=== PATIENT | female | born 1995 | race Caucasian/White ===

== ENCOUNTER 2021-08-01 19:32 | Emergency (ER) | payer MEDICAID ==
[~2021-08-01] VITALS: Ht 152.4 cm; Wt 67.1 kg
[2021-08-01 20:18] VITALS: BP 160/100
[2021-08-01] MEDS ORDERED: SODIUM CHLORIDE 0.9% 1,000 ML IV ONE (22:15)
[2021-08-01] MEDS ORDERED: CLINDAMYCIN 900MG IV 50 ML IV ONE (22:15)
[2021-08-01] MEDS ORDERED: FLUC150T38 PO (22:45)
[2021-08-01] MEDS ORDERED: CLIN300C8 PO (22:45)
== END 2021-08-01 23:24 | disposition home or self-care (01) ==
LOC: ER 19:32
DX: L02.11 Cutaneous abscess of neck (principal); Z79.2 Long term (current) use of antibiotics; Z79.899 Other long term (current) drug therapy
CPT/HCPCS: 70490; 96365; 99284; J3490; J7030